=== PATIENT | male | born 1970 | race Caucasian/White ===

== ENCOUNTER 2019-02-20 11:21 | Inpatient (IN) ==
[2019-02-20] MEDS ORDERED: HYDROmorphone INJ 0.5 MG/0.5 ML SYR IV STA (11:33)
[2019-02-20] MEDS ORDERED: KETOROLAC 30 MG/ML VIAL IV STA (11:33)
[2019-02-20] MEDS ORDERED: TAMSULOSIN HCL 0.4 MG CAP PO ONE (11:33)
[2019-02-20] MEDS ORDERED: ONDANSETRON INJ 2 MG/ML 2 ML VIAL IV STA (11:33)
--- NOTE | 2019-02-20 11:38 | Emergency Department Note ---
History of Present Illness General Chief complaint: Kidney Stone Stated complaint: KIDNEY STONES Time Seen by Provider: 02/20/19 11:28 History of Present Illness Maximum Pain Intensity: 8 This 48-year-old male presents to ER with chief complaint of left flank pain that woke him up this morning at approximately 8 AM. The patient describes the pain as sharp in nature. He also admits to associated nausea and vomiting but denies any diarrhea. The patient admits to hesitancy with urination but denies any hematuria, frequency or dysuria. The patient has a history of kidney stones. He is followed by Dr. Castro. He has had lithotripsy in the past. Home Medications Home Medications Medication Instructions Recorded Confirmed Type albuterol sulfate 2 puff INHALATION UD PRN 02/20/19 02/20/19 History cholecalciferol (vitamin D3) 1,000 unit PO DAILY 02/20/19 02/20/19 History [Vitamin D3] fluticasone furoate-vilanterol 1 puff INHALATION BID 02/20/19 02/20/19 History [Breo Ellipta] lactobacillus combination no.4 3,000 mmu cells PO DAILY 02/20/19 02/20/19 History [Probiotic] pantoprazole 20 mg PO DAILY 02/20/19 02/20/19 History sertraline 50 mg PO DAILY 02/20/19 02/20/19 History Allergies Allergy/AdvReac Type Severity Reaction Status Date / Time barium sulfate Allergy Intermediate eye Unverified 02/20/19 12:09 swelling morphine AdvReac Intermediate "MAKES ME Verified 02/20/19 12:09 REALLY SICK" Past Med/Surg History Medical History Kidney stone (Acute) Social History Preferred Language: Albanian Communication Ability: Effective Visual Impairment: No Limitations Hearing Ability: Normal Feels Safe at Home: Yes Smoking Status: Former smoker Review of Systems A total of 10 systems reviewed and were otherwise negative Physical Exam Vital Signs Vital Signs - 24 hr 02/20/19 11:24 02/20/19 12:21 02/20/19 12:46 Temperature 36.3 C L Temperature Source Oral Sepsis Recent Fever Within 48 Hours No Sepsis Action Taken by Nursing No Action Required Pulse Rate 60 78 Pulse Rhythm Regular Respiratory Rate 17 20 Respiratory Effort / Characteristics Non-Labored Respiratory Depth Normal Respiratory Pattern Regular Blood Pressure 189/103 H Blood Pressure Mean 131 Blood Pressure Position Sitting Pulse Oximetry 99 88 L 94 Oxygen Delivery Method Room Air Room Air Nasal Cannula Oxygen Flow Rate 2 GENERAL: 48-year-old obese male appears uncomfortable secondary to pain. MENTAL Status: Alert and oriented x3. MOUTH: Mucosa is moist NECK: Supple, no lymphadenopathy noted. No carotid bruits noted. LUNGS: Clear auscultation without wheezes rales or rhonchi. CARDIAC: Regular rate and rhythm without murmur. Pulses is full and equal throughout. BACK: No CVA tenderness noted. ABDOMEN: Positive bowel sounds all 4 quadrants. Soft, nontender to palpation without organomegaly or masses. EXTREMITIES: No cyanosis or edema noted. Course Administered Medications Discontinued Medications Hydromorphone HCl (Dilaudid) 1 mg IV NOW STA Stop: 02/20/19 11:34 Last Admin: 02/20/19 12:09 Dose: 1 mg Documented by: [id number] Sodium Chloride (Nss 1000ml) 1,000 mls @ 999 mls/hr IV .Q1H1M MARCIA Stop: 02/20/19 12:45 Last Admin: 02/20/19 12:06 Dose: 999 mls/hr Documented by: [id number] Ketorolac Tromethamine (Toradol) 30 mg IV NOW STA Stop: 02/20/19 11:34 Last Admin: 02/20/19 12:07 Dose: 30 mg Documented by: [id number] Ondansetron HCl (Zofran) 4 mg IV NOW STA Stop: 02/20/19 11:34 Last Admin: 02/20/19 12:00 Dose: 4 mg Documented by: [id number] Tamsulosin HCl (Flomax) 0.4 mg PO NOW ONE Stop: 02/20/19 11:34 Last Admin: 02/20/19 12:07 Dose: 0.4 mg Documented by: [id number] Medical Decision Making Differential Diagnosis Ureteral calculi, pyelonephritis, UTI Medical Records Attestation: I reviewed the patient's medical records. Home Medications Current Medication List: was personally reviewed by me Laboratory Data Attestation: I reviewed the patient's lab results. Result diagrams: 02/20/19 12:04 02/20/19 12:04 Lab Results 0402/20/19 02/20/19 Range/Units 12:04 12:04 12:15 WBC 7.33 (4.8-10.8) K/uL RBC 4.96 (4.7-6.1) M/uL Hgb 15.3 (14.0-18.0) g/dL Hct 45.1 (42-52) % MCV 90.9 (80-100) fL MCH 30.8 (25-34) pg MCHC 33.9 (32-36) g/dL RDW Std Deviation 43.0 (36.4-46.3) fL RDW Coeff of Edilia 12.9 (11.5-14.5) % Plt Count 227 (130-400) K/uL MPV 10.1 (7.4-10.4) fL Immature Gran % (Auto) 0.3 % Neut % (Auto) 71.4 % Lymph % (Auto) 19.4 % [place] % (Auto) 7.8 % Eos % (Auto) 0.7 % Baso % (Auto) 0.4 % Immature Gran # (Auto) 0.02 (0.00-0.02) K/uL Neut # (Auto) 5.24 (1.4-6.5) K/uL Lymph # (Auto) 1.42 (1.2-3.4) K/uL [place] # (Auto) 0.57 (0.11-0.59) K/uL Eos # (Auto) 0.05 (0-0.5) K/uL Baso # (Auto) 0.03 (0-0.2) K/uL Sodium 137 (136-145) mmol/L Potassium 4.3 (3.5-5.1) mmol/L Chloride 105 (98-107) mmol/L Carbon Dioxide 28 (21-32) mmol/L Anion Gap 4.0 (3-11) BUN 14 (7-18) mg/dl Creatinine 1.08 (0.6-1.4) mg/dl Est Cr Clr Drug Dosing 114.1 ml/min Est GFR ( Amer) 94.2 Est GFR (Non-Af Amer) 81.3 BUN/Creatinine Ratio 13.0 (10-20) Glucose 106 H (70-99) mg/dl Calcium 9.6 (8.5-10.1) mg/dl Total Bilirubin 1.7 H (0.2-1) mg/dl AST 26 (15-37) U/L ALT 43 (12-78) U/L Alkaline Phosphatase 132 H (45-117) U/L Total Protein 7.3 (6.4-8.2) gm/dl Albumin 3.5 (3.4-5.0) gm/dl Globulin 3.8 (2.5-4.0) gm/dl Albumin/Globulin Ratio 0.9 (0.9-2) Lipase 110 (73-393) U/L Urine Color [place] Urine Appearance Clear (Clear) Urine pH 5.5 (4.5-7.5) Ur Specific [place] 1.026 (1.000-1.030) Urine Protein 1+ H (Negative) Urine Glucose (UA) Negative (Negative) Urine Ketones Trace H (Negative) Urine Blood 3+ H (Negative) Urine Nitrite Negative (Negative) Urine Bilirubin Negative (Negative) Urine Urobilinogen Negative (Negative) Ur Leukocyte Esterase Negative (Negative) Urine WBC (Auto) 1-5 (0-5) /hpf Urine RBC (Auto) >30 H (0-4) /hpf U Hyaline Cast (Auto) 1-5 (0-5) /lpf U Epithel Cells (Auto) 5-10 H (0-5) /lpf Urine Bacteria (Auto) Negative (Negative) Imaging Data Attestation: I personally reviewed and interpreted this imaging study as follows: My Impression: Left distal ureteral calculi noted Radiologist's Impression: CT SCAN OF THE ABDOMEN AND PELVIS WITHOUT IV CONTRAST CLINICAL HISTORY: Left flank pain. COMPARISON STUDY: Abdominal CT dated 09/11/2018. TECHNIQUE: CT scan of the abdomen and pelvis is performed from the lung bases to the proximal femora. Images are reviewed in the axial, sagittal, and coronal planes. IV contrast was not administered for this examination. A dose lowering technique was utilized adhering to the principles of ALARA. CT DOSE: 1460.89 mGycm FINDINGS: Lung bases: The heart is normal in size and without pericardial effusion. There are coronary artery calcifications. The lung bases are clear. There is a small to moderate hiatal hernia. Liver: The unenhanced liver is normal in size, contour, and attenuation. There is no intrahepatic biliary ductal dilatation. Gallbladder: Surgically absent noting clips in the gallbladder fossa. Spleen: Normal in size and attenuation. Pancreas: Unremarkable. Adrenal glands: Unremarkable. Kidneys: The unenhanced kidneys are normal in size. There is a 10 mm obstructing calculus at the left ureteropelvic junction at the level of L2, best seen on axial image #267. This causes mild to moderate left-sided hydronephrosis. No additional calculi are identified in either kidney. There is no right-sided hydronephrosis. There is no evidence of contour deforming renal mass lesion. Abdominal vasculature: The abdominal aorta is normal in course and caliber noting scattered foci of atherosclerotic calcification. Bowel: The small bowel and colon are normal in course and caliber. The appendix is well-visualized and normal. Peritoneum: There is no intraperitoneal free air or abdominal ascites. There is a small fat-containing umbilical hernia. Lymphadenopathy: None. Pelvic viscera: The bladder, prostate, and seminal vesicles are normal as imaged. Skeletal structures: No lytic or blastic lesions are seen. IMPRESSION: 1. There is a 10 mm obstructing calculus at the left ureteropelvic junction. This causes mild to moderate left hydronephrosis. 2. No additional calculi are identified in either kidney. 3. Additional findings as above. Electronically signed by: Sagar Bagley M.D. 02/20/2019 1:12 PM Dictated: 02/20/19 1304 Blood Pressure Blood Pressure Findings: Elevated blood pressure Blood Pressure Disposition: elevated BP felt to be situational MDM Narrative The patient was evaluated. IV access was obtained. The patient was given 1 L normal saline wide open. He was given Dilaudid 1 mg IV, Toradol 30 mg IV, Zofran 4 mg IV and Flomax 0.4 mg p.o. CBC and differential, renal profile, LFTs and lipase levels were ordered. Urinalysis was ordered. CT stone study was ordered and interpreted by the radiologist and myself as above with a 10 mm stone at the left UV junction.. Patient's labs are reviewed. White count was normal. Renal function was unremarkable. Urinalysis revealed positive blood but no evidence of bacterial or infection. The patient was reevaluated and was feeling much better. I consulted urology about the patient and they stated that he needs to be admitted by the hospitalist and they will see him in consult. [facility] Hospitalist was consulted for admission. The patient was informed of treatment plan and was in agreement. Impression & Plan Kidney stone Discharge Plan Visit Data Chief Complaint: Kidney Stone Stated Complaint: KIDNEY STONES ED Provider: Sagar Shetty ED Midlevel Provider: Nyla Zavaleta Discharge Problem: Kidney stone Patient Disposition: Being Evaluated by Hospitalist Condition: Good Forms Stand Alone Forms: My [facility] Prescriptions Prescriptions: No Action pantoprazole 20 mg tablet,delayed release (DR/EC) 20 mg PO DAILY RF: 0 albuterol sulfate 90 mcg/actuation HFA aerosol inhaler 2 puff inhalation UD PRN (Reason: Shortness Of Breath) RF: 0 sertraline 50 mg tablet 50 mg PO DAILY RF: 0 Breo Ellipta 100-25 mcg/dose blister with device 1 puff inhalation BID RF: 0 cholecalciferol (vitamin D3) [Vitamin D3] 1,000 unit Capsule 1,000 unit PO DAILY RF: 0 Probiotic 3 billion cell Capsule 3,000 mmu cells PO DAILY RF: 0 Referrals Referrals: Hans Trevino DO [Primary Care Provider] -
[2019-02-20] MEDS ORDERED: SODIUM CHLORIDE 0.9% 1000ML 1,000 ML IV SCH (11:45)
[2019-02-20 12:12] LABS: Basophils # (auto) 0.03 K/uL (0-0.2); Basophils % (auto) 0.4 %; Eosinophils # (auto) 0.05 K/uL (0-0.5); Eosinophils % (auto) 0.7 %; Hematocrit (blood only) 45.1 % (42-52); Hemoglobin 15.3 g/dL (14.0-18.0); Immature Granulocytes # (auto) 0.02 K/uL (0.00-0.02); Immature Granulocytes % (auto) 0.3 %; Lymphocytes # (auto) 1.42 K/uL (1.2-3.4); Lymphocytes % (auto) 19.4 %; Mean Corpuscular Hgb Conc 33.9 g/dL (32-36); Mean Corpuscular Volume 90.9 fL (80-100); Mean Platelet Volume 10.1 fL (7.4-10.4); Monocytes # (auto) 0.57 K/uL (0.11-0.59); Monocytes % (auto) 7.8 %; Neutrophils # (auto) 5.24 K/uL (1.4-6.5); Neutrophils % (auto) 71.4 %; Platelet Count 227 K/uL (130-400); RDW Coefficient of Variation 12.9 % (11.5-14.5); Red Blood Count 4.96 M/uL (4.7-6.1); White Blood Count 7.33 K/uL (4.8-10.8)
[2019-02-20 12:30] LABS: Albumin Level 3.5 gm/dl (3.4-5.0); Calcium 9.6 mg/dl (8.5-10.1); Creatinine Clr Calc Pharmacy 114.1 ml/min; Est GFR (African American) 94.2; Est GFR (Non-African American) 81.3; Potassium 4.3 mmol/L (3.5-5.1)
[2019-02-20 12:32] LABS: Albumin Globulin Ratio 0.9 (0.9-2); Bilirubin,Total 1.7 mg/dl (0.2-1); Globulin 3.8 gm/dl (2.5-4.0); Total Protein 7.3 gm/dl (6.4-8.2)
[2019-02-20 12:35] LABS: Appearance Urine Clear (Clear); Bacteria Urine Automated Negative (Negative); Bilirubin Urine Negative (Negative); Blood Urine 3+ (Negative); Color Urine Orange; Glucose Urine UA Negative (Negative); Ketones Urine Trace (Negative); Leukocyte Esterase Urine Negative (Negative); Nitrite Urine Negative (Negative); Protein Urine 1+ (Negative); RBC Urine Automated >30 /hpf (0-4); Specific Gravity Urine 1.026 (1.000-1.030); Urobilinogen Urine Negative (Negative); pH Urine 5.5 (4.5-7.5)
--- NOTE | 2019-02-20 13:13 | CT Scan Report ---
CT SCAN OF THE ABDOMEN AND PELVIS WITHOUT IV CONTRAST CLINICAL HISTORY: Left flank pain. COMPARISON STUDY: Abdominal CT dated 09/11/2018. TECHNIQUE: CT scan of the abdomen and pelvis is performed from the lung bases to the proximal femora. Images are reviewed in the axial, sagittal, and coronal planes. IV contrast was not administered for this examination. A dose lowering technique was utilized adhering to the principles of ALARA. CT DOSE: 1460.89 mGycm FINDINGS: Lung bases: The heart is normal in size and without pericardial effusion. There are coronary artery c alcifications. The lung bases are clear. There is a small to moderate hiatal hernia. Liver: The unenhanced liver is normal in size, contour, and attenuation. There is no intrahepatic hilary iary ductal dilatation. Gallbladder: Surgically absent noting clips in the gallbladder fossa. Spleen: Normal in size and attenuation. Pancreas: Unremarkable. Adrenal glands: Unremarkable. Kidneys: The unenhanced kidneys are normal in size. There is a 10 mm obstructing calculus at the left ureteropelvic junction at the level of L2, best seen on axial image #267. This causes mild to modera te left-sided hydronephrosis. No additional calculi are identified in either kidney. There is no righ t-sided hydronephrosis. There is no evidence of contour deforming renal mass lesion. Abdominal vasculature: The abdominal aorta is normal in course and caliber noting scattered foci of a therosclerotic calcification. Bowel: The small bowel and colon are normal in course and caliber. The appendix is well-visualized a nd normal. Peritoneum: There is no intraperitoneal free air or abdominal ascites. There is a small fat-containin g umbilical hernia. Lymphadenopathy: None. Pelvic viscera: The bladder, prostate, and seminal vesicles are normal as imaged. Skeletal structures: No lytic or blastic lesions are seen. IMPRESSION: 1. There is a 10 mm obstructing calculus at the left ureteropelvic junction. This causes mild to mode rate left hydronephrosis. 2. No additional calculi are identified in either kidney. 3. Additional findings as above. Electronically signed by: Sagar Bagley M.D. 02/20/2019 1:12 PM
--- OUTSIDE RECORDS SUMMARY | 2019-02-20 13:42 | External Medical Summary | Continuity of Care Document ---
:1970 Author Name Evangelina M.DAlex Address Unavailable Unavailable , Care Team Providers Name Role Phone Unavailable Unavailable Unavailable MAXIN, W Unavailable Unavailable Unavailable Unavailable Unavailable Problems Nephrolithiasis (592.0) (N20.0) Nephrolithiasis (592.0) (N20.0) Allergies and Adverse Reactions Iodinated Contrast Media (Allergy) Morphine Sulfate SOLN (Allergy) Medications Simvastatin TABS , M.D. Refills: 0 Protonix 20 MG Oral Tablet Delayed Release , M.D. Refills: 0 Procedures History of Cystoscopy With Insertion Of Ureteral Stent Status: Completed Immunizations Immunizations not documented Family History Unknown Family Member Family history of Prostate Cancer (V16.42) Status: Active Comments: Family History Family history of Diabetes Mellitus (V18.0) Status: Active Comments: Family History Family history of Heart Disease (V17.49) Status: Active Comments: Family History Family history of Hypertension (V17.49) Status: Active Comments: Family History Family history of Cancer Status: Active Comments: Famil y History Family history of Nephrolithiasis Status: Active Commen ts: Family History Social History - Smoking Status Never smoker Plan of Treatment Planned Observations Planned Goals not documented Results No Known Results Results not documented
--- NOTE | 2019-02-20 14:52 | History & Physical Report ---
Date of Service February 20, 2019 Assessment & Plan (1) Kidney stone: 10 mm obstructing left UPJ stone with mild to moderate left hydronephrosis on CT - NPO until evaluated by urology for additional intervention - IV pain control with Dilaudid and Toradol - IVF with NSS at 125 ml/hr - IV Zofran ordered for nausea - Labs in AM - SCDs for DVT prophylaxis - encourage ambulation (2) Dyslipidemia: - Continue simvastatin (3) Anxiety: - Continue sertraline - pt reports symptoms are well-controlled (4) Reflux esophagitis: - Will change to Pepcid (from pantoprazole) while patient admitted (5) Asthma: - Continue Breo (pt can bring from home if needed) and prn albuterol Pt seen and discussed with collaborating physician, Dr. Beltre. Plan of care as outlined above. Further plan of care to be determined pending urology input. Aggie Zhong PA-C History of Present Illness Chief Complaint: Flank pain Primary Care Provider: Hans Trevino DO This is a 48 y/o male with a PMH of nephrolithiasis, asthma, dyslipidemia, reflux esophagitis and anxiety who presented to the ED today after the abrupt onset of left back/flank pain that awoke him from sleep around 7:30 am. 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 However, this morning he developed sharp pain in left mid-back that gradually moved to left flank area. He had associated nausea with one "prolonged" episode of non-bloody emesis. Due to the severity of symptoms as well as his prior history of stones, he came to the ED for evaluation where he was found to have a 10 mm obstructing stone at the left UPJ. The patient follows with [facility] urology at present. He was last in the ED for stones in Aug 2018. He did undergo stent placement and subsequent lithotripsy for a right-sided stone in 2013 but does not recall any other procedures since that time. He received Dilaudid for pain the ED with improvement - rates current pain as a 2. He did note chills and sweats with the pain this morning but no documented fevers. He has a strong family history of nephrolithiasis as both his parents and his two sisters all have had issues with this. He admits to drinking large amounts of sweet tea and Coke but also attempts to keep up his water intake as he has been instructed by urology. When the pain started this morning, he did attempt to drink 2-3 glasses of water but vomited this back up immediately. Allergies Allergy/AdvReac Type Severity Reaction Status Date / Time barium sulfate Allergy Intermediate eye Unverified 02/20/19 12:09 swelling morphine AdvReac Intermediate "MAKES ME Verified 02/20/19 12:09 REALLY SICK" Home Medications Home Medications Medication Instructions Recorded Confirmed Type albuterol sulfate 2 puff INHALATION UD PRN 02/20/19 02/20/19 History cholecalciferol (vitamin D3) 1,000 unit PO DAILY 02/20/19 02/20/19 History [Vitamin D3] fluticasone furoate-vilanterol 1 puff INHALATION BID 02/20/19 02/20/19 History [Breo Ellipta] lactobacillus combination no.4 3,000 mmu cells PO DAILY 02/20/19 02/20/19 History [Probiotic] pantoprazole 20 mg PO DAILY 02/20/19 02/20/19 History sertraline 50 mg PO DAILY 02/20/19 02/20/19 History simvastatin 40 mg PO DAILY 02/20/19 02/20/19 History Past Med/Surg History Social History Preferred Language: Amharic Communication Ability: Effective Visual Impairment: No Limitations Hearing Ability: Normal [employer] Required: No Beliefs That Will Affect Care: None Current Living Situation: Spouse current occupational status: employed 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 [employer] Other Information That Helps Us Care for You: No Feels Safe at Home: Yes Safety Concerns: Feels Safe At This Time Smoking Status: Former smoker Do You Dip or Chew Tobacco: No Second Hand Exposure: No Tobacco Cessation Education Requested by Patient: No Hx Alcohol Use: Yes Hx Substance Use: No caffeine: Yes (large amounts of sweet tea, Coke) Review of Systems Review of Systems: All systems reviewed & are unremarkable except as noted in HPI & below Constitutional: + chills, + sweats, + fatigue and + anorexia; no fever Eyes: no diplopia, not seeing flashes and no worsening vision Ear, Nose, Mouth, Throat: + nasal congestion and + nasal discharge; no ear pain, no dizziness and no sore throat Respiratory: + cough (due to asthma - chronic issue) and + wheezing (at baseline - underlying asthma); no change in sputum, no dyspnea on exertion and no hemoptysis Cardiovascular: no chest pain, no dyspnea on exertion, no palpitations, no syncope and no edema Gastrointestinal: + nausea and + vomiting; no heartburn, no dysphagia, no change in bowel habits, no diarrhea/loose stools and no blood in stools Genitourinary: + decreased urination and + flank pain; no dysuria, no nocturia and no hematuria Musculoskeletal: no neck pain, no joint pain and no muscle weakness Integumentary: no rash and no skin ulcer Neurologic: no falls, no seizure-like activity, no dizziness, no syncope and no headache(s) Psychiatric: + anxiety (chronic issue - stable at present) Physical Exam Constitutional: WD/WN, vitals as above + obese; no acute distress Eyes: PERRL, conjunctivae normal, anicteric sclerae EOM intact bilaterally ENMT: external ear and nose normal, oropharynx normal Neck: trachea midline Respiratory: normal respiratory effort, lungs clear to auscultation Auscultation: no rales, no rhonchi and no wheezes Cardiovascular: Rate/Rhythm: regular rate and regular rhythm Heart Sounds: no gallop, no murmur and no cardiac rub Vessels: dorsalis pedis pulses present Extremities: normal capillary refill; no pedal edema Gastrointestinal (Abdomen): Inspection/Auscultation: normal bowel sounds; abdomen not distended Percussion/Palpation: abdomen soft; abdomen nontender Musculoskeletal: Head/Neck/Chest: normocephalic, head atraumatic and neck supple Extremities: no cyanosis and no clubbing Skin: no rashes, warm and dry no jaundice Neurologic: moves all extremities; no focal motor deficits Speech / Cognition: normal speech Psychiatric: A+Ox3, euthymic affect Results & Data Vital Signs (Past 12 Hours) Vital Signs Temp Pulse Pulse Resp BP BP Pulse Ox 02/20/19 14:03 74 20 122/79 94 02/20/19 12:46 78 20 94 02/20/19 12:21 88 L 02/20/19 11:24 36.3 C L 60 17 189/103 H 99 Laboratory Results Laboratory Results - last 24 hr 02/20/19 02/20/19 02/20/19 12:04 12:04 12:15 WBC 7.33 RBC 4.96 Hgb 15.3 Hct 45.1 MCV 90.9 MCH 30.8 MCHC 33.9 RDW Std Deviation 43.0 RDW Coeff of Edilia 12.9 Plt Count 227 MPV 10.1 Immature Gran % (Auto) 0.3 Neut % (Auto) 71.4 Lymph % (Auto) 19.4 [place] % (Auto) 7.8 Eos % (Auto) 0.7 Baso % (Auto) 0.4 Immature Gran # (Auto) 0.02 Neut # (Auto) 5.24 Lymph # (Auto) 1.42 [place] # (Auto) 0.57 Eos # (Auto) 0.05 Baso # (Auto) 0.03 Sodium 137 Potassium 4.3 Chloride 105 Carbon Dioxide 28 Anion Gap 4.0 BUN 14 Creatinine 1.08 Est Cr Clr Drug Dosing 114.1 Est GFR ( Amer) 94.2 Est GFR (Non-Af Amer) 81.3 BUN/Creatinine Ratio 13.0 Glucose 106 H Calcium 9.6 Total Bilirubin 1.7 H AST 26 ALT 43 Alkaline Phosphatase 132 H Total Protein 7.3 Albumin 3.5 Globulin 3.8 Albumin/Globulin Ratio 0.9 Lipase 110 Urine Color [place] Urine Appearance Clear Urine pH 5.5 Ur Specific [place] 1.026 Urine Protein 1+ H Urine Glucose (UA) Negative Urine Ketones Trace H Urine Blood 3+ H Urine Nitrite Negative Urine Bilirubin Negative Urine Urobilinogen Negative Ur Leukocyte Esterase Negative Urine WBC (Auto) 1-5 Urine RBC (Auto) >30 H U Hyaline Cast (Auto) 1-5 U Epithel Cells (Auto) 5-10 H Urine Bacteria (Auto) Negative Diagnostic Findings CT Abd/Pel 02/20/19 - IMPRESSION: 1. There is a 10 mm obstructing calculus at the left ureteropelvic junction. This causes mild to moderate left hydronephrosis. 2. No additional calculi are identified in either kidney. 3. Additional findings as above. Medications Administered Discontinued Medications Hydromorphone HCl (Dilaudid) 1 mg IV NOW STA Stop: 02/20/19 11:34 Last Admin: 02/20/19 12:09 Dose: 1 mg Documented by: [id number] Sodium Chloride (Nss 1000ml) 1,000 mls @ 999 mls/hr IV .Q1H1M MARCIA Stop: 02/20/19 12:45 Last Infusion: 02/20/19 14:04 Dose: 0 mls/hr Documented by: [id number] Admin: 02/20/19 12:06 Dose: 999 mls/hr Documented by: [id number] Ketorolac Tromethamine (Toradol) 30 mg IV NOW STA Stop: 02/20/19 11:34 Last Admin: 02/20/19 12:07 Dose: 30 mg Documented by: [id number] Ondansetron HCl (Zofran) 4 mg IV NOW STA Stop: 02/20/19 11:34 Last Admin: 02/20/19 12:00 Dose: 4 mg Documented by: [id number] Tamsulosin HCl (Flomax) 0.4 mg PO NOW ONE Stop: 02/20/19 11:34 Last Admin: 02/20/19 12:07 Dose: 0.4 mg Documented by: [id number] Code Status & VTE Plan Code Status spoke with patient about code status - he states that he would want all measures performed in the event of an arrest Supervising Physician Co-Signing Physician Notes I have seen and examined the patient and have discussed the case with the provider above. I agree with the assessment and plan as stated with the following exceptions. Mr. Freeman is a 48 yo M with a h/o nephrolithiasis presenting with severe pain 2/2 a 10mm UPJ stone. Urology is aware. He reports his pain as resolved after the dilaudid given in the ER, and is requesting sancho d. BP has improved with pain control. Physical exam reveals normal vitals, and a WNWD man in NAD, heart and lung exam is normal and abdomen is soft, nontender and nondistended wo CVA tenderness. He is afebrile. He is otherwise healthy. Cont plan as above including pain and nausea control, Flomax and IVF. NPO p MN in case of procedure in am. Will order diet now. DO Alexsander
[2019-02-20] MEDS ORDERED: TRAMADOL HCL 50 MG TABLET PO PRN (15:52)
[2019-02-20] MEDS ORDERED: HYDROmorphone INJ 0.5 MG/0.5 ML SYR IV PRN (15:52)
[2019-02-20] MEDS ORDERED: ONDANSETRON INJ 2 MG/ML 2 ML VIAL IV PRN (15:52)
[2019-02-20] MEDS ORDERED: ALBUTEROL HFA 8 GM INHALER INH PRN (15:52)
[2019-02-20] MEDS ORDERED: KETOROLAC TROMETHAMINE 15 MG/ML VIAL IV PRN (15:52)
[2019-02-20] MEDS: SODIUM CHLORIDE 0.9% 1000ML 1,000 ML IV SCH (16:16)
[2019-02-20] MEDS ORDERED: NON-FORMULARY PATIENT'S OWN MED SCH (21:00)
[2019-02-21] MEDS: SODIUM CHLORIDE 0.9% 1000ML 1,000 ML IV SCH ×3 (00:15→18:36)
[2019-02-21 06:54] LABS: Basophils # (auto) 0.03 K/uL (0-0.2); Basophils % (auto) 0.4 %; Eosinophils # (auto) 0.11 K/uL (0-0.5); Eosinophils % (auto) 1.6 %; Hematocrit (blood only) 41.4 % (42-52); Hemoglobin 13.7 g/dL (14.0-18.0); Immature Granulocytes # (auto) 0.01 K/uL (0.00-0.02); Immature Granulocytes % (auto) 0.1 %; Lymphocytes % (auto) 31.3 %; Mean Corpuscular Hgb Conc 33.1 g/dL (32-36); Mean Corpuscular Volume 91.8 fL (80-100); Monocytes # (auto) 0.72 K/uL (0.11-0.59); Monocytes % (auto) 10.3 %; Neutrophils # (auto) 3.95 K/uL (1.4-6.5); Neutrophils % (auto) 56.3 %; Platelet Count 205 K/uL (130-400); RDW Coefficient of Variation 13.1 % (11.5-14.5); RDW Standard Deviation 43.9 fL (36.4-46.3); Red Blood Count 4.51 M/uL (4.7-6.1); White Blood Count 7.02 K/uL (4.8-10.8)
[2019-02-21 07:29] LABS: BUN Creatinine Ratio 12.7 (10-20); Calcium 8.5 mg/dl (8.5-10.1); Creatinine Clr Calc Pharmacy 129.7 ml/min; Est GFR (Non-African American) 94.9; Potassium 4.1 mmol/L (3.5-5.1)
[2019-02-21] MEDS ORDERED: SERTRALINE HCL 50 MG TABLET PO SCH (09:00)
[2019-02-21] MEDS ORDERED: TAMSULOSIN HCL 0.4 MG CAP PO SCH (09:00)
[2019-02-21] MEDS ORDERED: FAMOTIDINE 20 MG TAB PO SCH (09:00)
[2019-02-21] MEDS ORDERED: SIMVASTATIN 40 MG TAB PO SCH (09:00)
--- NOTE | 2019-02-21 11:05 | Urology Consultation ---
Date of Consultation February 21, 2019 Assessment & Plan (1) Kidney stone: 10mm left upper ureteral stone plan to OR for cysto left ureteroscopy laser litho basket stone extraction stent also offered stent today and eswl in future. 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 he has had pain since yesterday am. He was brought in thru ER. He had nausea and emesis yesterday. Pain control today has been good. he has had stones in past treated with shock wave lithotripsy. His ct shows a 10mm left upper ureteral stone wiht hydro. Requesting Physician: Dr Short Attending Physician: Bishop Bradley DO History of Present Illness I am asked by Dr Short to evaluate and treat patient for left ureteral stone. he has had pain since yesterday am. He was brought in thru ER. He had nausea and emesis yesterday. Pain control today has been good. he has had stones in past treated with shock wave lithotripsy. His ct shows a 10mm left upper ureteral stone wiht hydro. Allergies Allergy/AdvReac Type Severity Reaction Status Date / Time barium sulfate Allergy Intermediate eye Unverified 02/20/19 12:09 swelling morphine AdvReac Intermediate "MAKES ME Verified 02/20/19 12:09 REALLY SICK" Home Medications Home Medications Medication Instructions Recorded Confirmed Type albuterol sulfate 2 puff INHALATION UD PRN 02/20/19 02/20/19 History cholecalciferol (vitamin D3) 1,000 unit PO DAILY 02/20/19 02/20/19 History [Vitamin D3] fluticasone furoate-vilanterol 1 puff INHALATION BID 02/20/19 02/20/19 History [Breo Ellipta] lactobacillus combination no.4 3,000 mmu cells PO DAILY 02/20/19 02/20/19 History [Probiotic] pantoprazole 20 mg PO DAILY 02/20/19 02/20/19 History sertraline 50 mg PO DAILY 02/20/19 02/20/19 History simvastatin 40 mg PO DAILY 02/20/19 02/20/19 History Patient History Social History Preferred Language: Pakistani Communication Ability: Effective Visual Impairment: No Limitations Hearing Ability: Normal 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 Beliefs That Will Affect Care: None Current Living Situation: Spouse current occupational status: employed 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 [employer] Other Information That Helps Us Care for You: No Feels Safe at Home: Yes Safety Concerns: Feels Safe At This Time Smoking Status: Former smoker Do You Dip or Chew Tobacco: No Second Hand Exposure: No Tobacco Cessation Education Requested by Patient: No Hx Alcohol Use: Yes Hx Substance Use: No caffeine: Yes (large amounts of sweet tea, Coke) Review of Systems Review of Systems: PMH- asthma Soc- no tobacco social alcohol, employed Fam Hx- both parents and siblings have kidney stones, dad had mi in his late 40's ROS- + nausea + emesis- no rash, no chest pain, no SOB, bowels fine, no weakness or seizures or numbness, no fevers or chills Physical Exam Constitutional: WD/WN, vitals as above Respiratory: normal respiratory effort, lungs clear to auscultation Cardiovascular: RRR, no murmur, no edema Gastrointestinal (Abdomen): normal bowel sounds, soft, nontender, no hepatosplenomegaly Skin: no rashes, warm and dry Psychiatric: A+Ox3, euthymic affect Apperance: appropriately groomed Results & Data Vital Signs (Past 12 Hours) Vital Signs Temp Pulse Pulse Resp BP Pulse Ox 02/21/19 08:29 36.6 C 78 18 130/80 95 02/20/19 23:05 36.6 C 76 16 129/84 94
--- NOTE | 2019-02-21 11:20 | Anesthesiology Consultation ---
Date of Service February 21, 2019 Assessment & Plan (1) Encounter for pre-operative examination: Chart Review Chart Review: Acceptable Risk for Surgery and Patient NOT seen in Pre Admission Testing Consults Requested none History Surgery Operation Date: 02/21/19 07:00 Proposed Procedures p Left Ureteroscopy, Cystoscopy, Basket Stone Extraction, Stent Placement - Alysia Rock MD Height/Weight Height: 5 ft 10 in Weight: 129 kg Allergies Allergy/AdvReac Type Severity Reaction Status Date / Time barium sulfate Allergy Intermediate eye Unverified 02/20/19 12:09 swelling morphine AdvReac Intermediate "MAKES ME Verified 02/20/19 12:09 REALLY SICK" Medications Home Medications Medication Instructions Recorded Confirmed Last Taken albuterol sulfate 2 puff INHALATION UD PRN 02/20/19 02/20/19 Unknown cholecalciferol (vitamin D3) 1,000 unit PO DAILY 02/20/19 02/20/19 Unknown [Vitamin D3] fluticasone furoate-vilanterol 1 puff INHALATION BID 02/20/19 02/20/19 Unknown [Breo Ellipta] lactobacillus combination no.4 3,000 mmu cells PO DAILY 02/20/19 02/20/19 Unknown [Probiotic] pantoprazole 20 mg PO DAILY 02/20/19 02/20/19 Unknown sertraline 50 mg PO DAILY 02/20/19 02/20/19 Unknown simvastatin 40 mg PO DAILY 02/20/19 02/20/19 Unknown Active Medications Generic Name Dose Route Start Last Admin Trade Name Freq PRN Reason Stop Dose Admin Famotidine 20 mg 02/21/19 09:00 02/21/19 09:04 Pepcid PO 03/23/19 08:59 20 mg QAM MARCIA Administration Sodium Chloride 1,000 mls @ 125 mls/hr 02/20/19 15:52 02/21/19 07:45 Nss 1000ml IV 03/22/19 15:51 125 mls/hr .Q8H MARCIA Administration Miscellaneous 1 ea 02/20/19 16:15 02/21/19 07:45 Order Awaiting Action N/A 03/22/19 16:14 Not Given QS MARCIA Sertraline HCl 50 mg 02/21/19 09:00 02/21/19 09:05 Zoloft PO 03/23/19 08:59 50 mg DAILY MARCIA Administration Simvastatin 40 mg 02/21/19 09:00 02/21/19 09:04 Zocor PO 03/23/19 08:59 40 mg DAILY MARCIA Administration Tamsulosin HCl 0.4 mg 02/21/19 09:00 02/21/19 09:03 Flomax PO 03/23/19 08:59 0.4 mg QAM MARCIA Administration NPO Date Last Intake of Fluids: 02/21/19 Time Last Intake of Fluids: 00:00 Last Intake of Fluids Comment: allowed sips/chips. Date Last Intake of Solids: 02/20/19 Time Last Intake of Solids: 23:00 Last Intake of Solids Comment: prior to shift. Past Medical History Medical History Kidney stone (Acute) Anxiety (Chronic) Asthma (Chronic) Dyslipidemia (Chronic) Environmental allergies (Chronic) History of wisdom tooth extraction (Chronic) Reflux esophagitis (Chronic) Alcohol dependence in remission (Resolved) Morbid obesity Past Family History Family History Mother Nephrolithiasis Father Nephrolithiasis Sister Nephrolithiasis Sister Nephrolithiasis Past Surgical History Surgical History History of laparoscopic cholecystectomy (Chronic) History of tonsillectomy and adenoidectomy (Chronic) History of tympanostomy (Resolved) History of lithotripsy Social History Smoking Status: Former smoker Do You Dip or Chew Tobacco: No Hx Alcohol Use: Yes Hx Substance Use: No Physical Exam Vital Signs Last Vital Signs Temp 36.6 C 02/21/19 08:29 Pulse 78 02/21/19 08:29 Resp 18 02/21/19 08:29 BP 130/80 02/21/19 08:29 Pulse Ox 95 02/21/19 08:29 Testing Laboratory Results 02/21/19 06:28 02/21/19 06:28 Urine Color [place] 02/20/19 12:15 Urine Appearance Clear (Clear) 02/20/19 12:15 Urine pH 5.5 (4.5-7.5) 02/20/19 12:15 Ur Specific [place] 1.026 (1.000-1.030) 02/20/19 12:15 Urine Protein 1+ (Negative) H 02/20/19 12:15 Urine Glucose (UA) Negative (Negative) 02/20/19 12:15 Urine Ketones Trace (Negative) H 02/20/19 12:15 Urine Nitrite Negative (Negative) 02/20/19 12:15 Ur Leukocyte Esterase Negative (Negative) 02/20/19 12:15 Urine WBC (Auto) 1-5 /hpf (0-5) 02/20/19 12:15 Urine RBC (Auto) >30 /hpf (0-4) H 02/20/19 12:15 U Hyaline Cast (Auto) 1-5 /lpf (0-5) 02/20/19 12:15 U Epithel Cells (Auto) 5-10 /lpf (0-5) H 02/20/19 12:15 Urine Bacteria (Auto) Negative (Negative) 02/20/19 12:15
--- NOTE | 2019-02-21 11:58 | Hospitalist Progress Note ---
Date of Service February 21, 2019 Assessment & Plan (1) Kidney stone: 10 mm obstructing left UPJ stone with mild to moderate left hydronephrosis on CT - Urology on case-plan to OR for cysto left ureteroscopy laser litho basket stone extraction stent - IV pain control with Dilaudid and Toradol - IVF with NSS at 125 ml/hr - IV Zofran ordered for nausea - Monitor Daily Labs - SCDs for DVT prophylaxis - encourage ambulation (2) Dyslipidemia: - Continue simvastatin (3) Anxiety: - Continue sertraline - pt reports symptoms are well-controlled (4) Reflux esophagitis: - Will change to Pepcid (from pantoprazole) while patient admitted (5) Asthma: - Continue Breo (pt can bring from home if needed) and prn albuterol Subjective 48 y/o male with a PMH of nephrolithiasis, asthma, dyslipidemia, reflux esophagitis and anxiety who presented to the ED today after the abrupt onset of left back/flank pain that awoke him from sleep around 7:30 am. 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 However, this morning he developed sharp pain in left mid-back that gradually moved to left flank area. He had associated nausea with one "prolonged" episode of non-bloody emesis. Due to the severity of symptoms as well as his prior history of stones, he came to the ED for evaluation where he was found to have a 10 mm obstructing stone at the left UPJ. The patient follows with [facility] urology at present. He was last in the ED for stones in Aug 2018. He did undergo stent placement and subsequent lithotripsy for a right-sided stone in 2013 but does not recall any other procedures since that time. He received Dilaudid for pain the ED with improvement - rates current pain as a 2. He did note chills and sweats with the pain this morning but no documented fevers. He has a strong family history of nephrolithiasis as both his parents and his two sisters all have had issues with this. He admits to drinking large amounts of sweet tea and Coke but also attempts to keep up his water intake as he has been instructed by urology. When the pain started this morning, he did attempt to drink 2-3 glasses of water but vomited this back up immediately. He was seen by -plan to OR for cysto left ureteroscopy laser litho basket stone extraction stent ROS-No Headache, No Visual Changes, No Nausea, No Vomiting, No Fever, No Chills, No Neck Pain or Stiffness, No Chest Pain, No Palpitations, No SOB, No SUMNER, No Cough, No Sputum, No Wheezing, No Abdominal Pain, No Diarrhea, No Hematemesis, No Hemoptysis, No Unexpected Weight Loss, No Flank pain, No Melena, No Hematochezia, No Frequency, No Urgency, No Burning, No Hematuria, No Rashes, No Diaphoresis. Appetite is Normal. Left flank and back Pain Physical Exam Gen-AAO x 3, NAD, Afebrile Head-NCAT, EOMI, PERRLA, Anicteric Sclera, No Posterior Pharyngeal Erythema Neck-Supple, No JVD, No Thyromegaly, No Masses, No LAD, No Bruits Lungs-Clear to Auscultation Bilaterally, No Rales, No Rhonchi, No Wheezing, No Crepitus Chest-No S4, +S1, +S2, No S3, No Murmurs, No Rubs, No Gallops, No Ectopy Abdomen-Soft, Bowel Sounds Present, Non Tender, Non Distended, No Hepatomegaly, No Splenomegaly, No Palpable Masses, No Rebound, No Rigidity, No Guarding Musculoskeletal-Full Range of Motion Bilaterally, +Left CVAT Extremities-No Cyanosis, No Clubbing, No Edema Nuero-Cranial Nerves II-XII grossly intact, Motor WNL, DTRs WNL, Strength WNL, Non Focal Psych-Normal Mood Results & Data Vital Signs (Past 12 Hours) Vital Signs Temp Pulse Resp BP Pulse Ox 02/21/19 08:29 36.6 C 78 18 130/80 95 Current Diagnoses Hyperlipidemia, unspecified (02/20/19) Anxiety disorder, unspecified (02/20/19) Unspecified asthma, uncomplicated (02/20/19) Gastro-esophageal reflux disease with esophagitis (02/20/19) Calculus of kidney (02/20/19) Encounter for other preprocedural examination (02/20/19) Allergies barium sulfate Allergy (Intermediate, Unverified 02/20/19 12:09) eye swelling morphine Adverse Reaction (Intermediate, Verified 02/20/19 12:09) "MAKES ME REALLY SICK" Height/Weight/Isolation Height 5 ft 10 in Weight 129 kg Chemistry 02/20/19 02/21/19 12:04 06:28 Sodium 137 140 Potassium 4.3 4.1 Chloride 105 109 H Carbon Dioxide 28 29 Anion Gap 4.0 2.0 L BUN 14 12 Creatinine 1.08 0.95 Glucose 106 H 96 Urinalysis 02/20/19 12:15 Urine Color [place] Urine Appearance Clear Urine pH 5.5 Ur Specific [place] 1.026 Urine Protein 1+ H Urine Glucose (UA) Negative Urine Ketones Trace H Urine Blood 3+ H Urine Nitrite Negative Urine Bilirubin Negative
[2019-02-21] MEDS ORDERED: ONDANSETRON INJ 2 MG/ML 2 ML VIAL IV PRN (12:56)
[2019-02-21] MEDS ORDERED: ATROPINE SULFATE 0.1 MG/ML 10ML SYR IV PRN (12:56)
[2019-02-21] MEDS ORDERED: fentaNYL citrate 100 MCG/2 ML VIAL IV PRN (12:56)
[2019-02-21] MEDS ORDERED: ePHEDrine sulfate 50 MG/ML AMP IV PRN (12:56)
[2019-02-21] MEDS ORDERED: MIDAZOLAM HCL 1 MG/ML 2ML VIAL ONE (13:25)
[2019-02-21] MEDS ORDERED: fentaNYL citrate 100 MCG/2 ML VIAL ONE (13:25)
[2019-02-21] MEDS ORDERED: CEFAZOLIN 2,000 MG/15 ML IV PUSH IV ONE (13:40)
[2019-02-21] MEDS ORDERED: CEFAZOLIN 2000MG 2,000 MG/15 ML SYR IV SCH (13:45)
[2019-02-21] MEDS ORDERED: PROPOFOL IV EMULSION 10 MG/ML 20 ML VIAL IV ONE (14:28)
[2019-02-21] MEDS ORDERED: KETOROLAC 30 MG/ML VIAL ONE (14:28)
[2019-02-21] MEDS ORDERED: DEXAMETHASONE SOD INJ 4 MG/ML VIAL ONE (14:28)
[2019-02-21] MEDS ORDERED: ONDANSETRON INJ 2 MG/ML 2 ML VIAL ONE (14:28)
[2019-02-21] MEDS ORDERED: LIDOCAINE HCL 2% 2 ML VIAL/AMP(20MG/ML) INFIL ONE (14:28)
[2019-02-21] MEDS ORDERED: BELLADONNA/OPIUM SUPP 60 MG SUPP PR ONE (14:28)
--- NOTE | 2019-02-21 14:41 | Operative Report ---
Post Operative Report Pre & Post Diagnosis Operation Date: 02/21/19 07:00 Pre-Op Diagnosis: OBSTRUCTING NEPHROLITHIASIS left ureter Post-Op Diagnosis: OBSTRUCTING NEPHROLITHIASIS left ureter Procedure Operation Date: 02/21/19 07:00 Actual Procedures p Left Ureteroscopy, Cystoscopy, Laser Lithotripsy, Basket Stone Extraction, Left Ureteral Stent Placement(Left) - Alysia Rock MD Surgeon Alysia Rock MD Transmission Maintenance Supervisor none Estimated Blood Loss 1 Findings Consistent with Post-Op Diagnosis radio-opaque left upper ureteral stone Fluids 600 Specimens left ureteral stone fragments Drains 6 fr 24 centimeter double Jstent Anesthesia Type General Complications none Disposition Accompanied Patient To Recovery: Yes Disposition: Recovery Room Indications 10mm left upper ureteral stone with obstruction Description of Procedure Patient was given general LMA anesthesia and placed in lithotomy position. His genitals were prepped and draped in sterile fashion. Time out held with team. I placed a 21 fr rigid cystoscope to bladder. The urethra is unremarkable. The prostate is medium. The UOs are round shape with small lumen. I placed a road runner wire up left ureter and was able under fluoro to see wire go past stone to kidney. I placed a 5 fr over this wire and switched to a stiff wire. I placed a dual lumen cath which was very tight at UVJ. I placed second aire. I placed ureteroscope over second wire to upper ureter. It was also tight at the UVJ. I advanced the scope to the kidney under vision. he has a area of narrowing in the upper ureter about 20mm fro UPJ. Scope passage was tight. The stone has been pushed back into the kidney. I used a 270 micron holmium laser to fragment the stone into about 10 pieces. I used a 1.9 zero tip basket and removed 4 fragments. The ureter is too tight to allow for further scope pas sages to remove the remaining pieces but they should be small enough to pass. I placed a 24 centimeter 6 Fr double J stent easily. There is brisk efflux after placement. I left bladder empty and concluded case. I placed a belladonna and opium suppository for post-op pain. He transferred to recovery under my escort, in stable condition. Plan: Home today Pyridium for dysuria x 3 days flomax daily oral pain meds as needed stent removal in office next week ASA 3 clean contaminated case 29 seconds fluoro ancef antibiotic cone machine feeder I attest to the content of the Intraoperative Record and any orders documented therein. Any exceptions are noted below.
--- NOTE | 2019-02-21 14:52 | Fluoroscopy Report ---
FL retrograde includes kub CLINICAL HISTORY: LEFT SIDEnephrocalcinosis COMPARISON STUDY: None FLUOROSCOPY TIME: 29 seconds NUMBER OF FLUOROSCOPIC IMAGES: 4 FINDINGS: Image intensifier support for laser lithotripsy and stent placement IMPRESSION: Image intensifier support for laser lithotripsy and stent placement The above report was generated using voice recognition software. It may contain grammatical, syntax or spelling errors. Electronically signed by: José Miguel Zavaleta M.D. 02/21/2019 2:50 PM
--- NOTE | 2019-02-21 15:25 | Anesthesiology Progress Note ---
Date of Service February 21, 2019 Anesthesia Post Procedure Vital Signs Vital Signs: Temp Pulse Pulse Resp BP Pulse Ox 02/21/19 15:15 69 15 144/88 H 95 02/21/19 15:05 87 18 137/90 96 02/21/19 14:55 86 18 153/98 H 97 02/21/19 14:45 97.5 F L 97 H 16 170/115 H 96 02/21/19 12:58 98.8 F 72 18 132/96 96 02/21/19 12:23 97.9 F 80 18 130/82 93 02/21/19 08:29 97.9 F 78 18 130/80 95 02/20/19 23:05 97.9 F 76 16 129/84 94 02/20/19 15:54 98.1 F 86 19 121/78 92 Pain Intensity Left Flank: Pain Intensity: 1 Transfer of Care Handoff Completed per policy Notes Mental Status: alert / awake / arousable and participated in evaluation Patient Amnestic to Procedure: Yes Nausea / Vomiting: adequately controlled Pain: adequately controlled Airway Patency, RR, SpO2: stable & adequate BP & HR: stable & adequate Hydration State: stable & adequate Anesthetic Complications: no major complications apparent and Pt Satisfied with anesthetic care
--- NOTE | 2019-02-21 19:36 | Discharge Summary ---
Date of Service February 21, 2019 Admission HPI Per Admitting Provider This is a 48 y/o male with a PMH of nephrolithiasis, asthma, dyslipidemia, reflux esophagitis and anxiety who presented to the ED today after the abrupt onset of left back/flank pain that awoke him from sleep around 7:30 am. 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 However, this morning he developed sharp pain in left mid-back that gradually moved to left flank area. He had associated nausea with one "prolonged" episode of non-bloody emesis. Due to the severity of symptoms as well as his prior history of stones, he came to the ED for evalu ation where he was found to have a 10 mm obstructing stone at the left UPJ. The patient follows with [facility] at present. He was last in the ED for stones in Aug 2018. He did undergo stent placement and subsequent lithotripsy for a right-sided stone in 2013 but does not recall any other procedures since that time. He received Dilaudid for pain the ED with improvement - rates current pain as a 2. He did note chills and sweats with the pain this morning but no documented fevers. He has a strong family history of nephrolithiasis as both his parents and his two sisters all have had issues with this. He admits to drinking large amounts of sweet tea and Coke but also attempts to keep up his water intake as he has been instructed by urology. When the pain started this morning, he did attempt to drink 2-3 glasses of water but vomited this back up immediately. s Left Ureteral Stent Placement Surgeon: Alysia Rock Side: Left p Left Ureteroscopy, Cystoscopy, Laser Lithotripsy, Basket Stone Extraction, Surgeon: Alysia Rock Side: Left Admission Exam Per Admitting Provider Constitutional: WD/WN, vitals as above + obese; no acute distress Eyes: PERRL, conjunctivae normal, anicteric sclerae EOM intact bilaterally ENMT: external ear and nose normal, oropharynx normal Neck: trachea midline Respiratory: normal respiratory effort, lungs clear to auscultation Auscultation: no rales, no rhonchi and no wheezes Cardiovascular: Rate/Rhythm: regular rate and regular rhythm Heart Sounds: no gallop, no murmur and no cardiac rub Vessels: dorsalis pedis pulses present Extremities: normal capillary refill; no pedal edema Gastrointestinal (Abdomen): Inspection/Auscultation: normal bowel sounds; abdomen not distended Percussion/Palpation: abdomen soft; abdomen nontender Musculoskeletal: Head/Neck/Chest: normocephalic, head atraumatic and neck supple Extremities: no cyanosis and no clubbing Skin: no rashes, warm and dry no jaundice Neurologic: moves all extremities; no focal motor deficits Speech / Cognition: normal speech Psychiatric: A+Ox3, euthymic affect Principal Diagnosis Renal Stent Discharge Exam ROS-No Headache, No Visual Changes, No Nausea, No Vomiting, No Fever, No Chills, No Neck Pain or Stiffness, No Chest Pain, No Palpitations, No SOB, No SUMNER, No Cough, No Sputum, No Wheezing, No Abdominal Pain, No Diarrhea, No Hematemesis, No Hemoptysis, No Unexpected Weight Loss, No Flank pain, No Melena, No Hematochezia, No Frequency, No Urgency, No Burning, No Hematuria, No Rashes, No Diaphoresis. Appetite is Normal Physical Exam Gen-AAO x 3, NAD, Afebrile Head-NCAT, EOMI, PERRLA, Anicteric Sclera, No Posterior Pharyngeal Erythema Neck-Supple, No JVD, No Thyromegaly, No Masses, No LAD, No Bruits Lungs-Clear to Auscultation Bilaterally, No Rales, No Rhonchi, No Wheezing, No Crepitus Chest-No S4, +S1, +S2, No S3, No Murmurs, No Rubs, No Gallops, No Ectopy Abdomen-Soft, Bowel Sounds Present, Non Tender, Non Distended, No Hepatomegaly, No Splenomegaly, No Palpable Masses, No Rebound, No Rigidity, No Guarding Musculoskeletal-Full Range of Motion Bilaterally, No CVAT Extremities-No Cyanosis, No Clubbing, No Edema Nuero-Cranial Nerves II-XII grossly intact, Motor WNL, DTRs WNL, Strength WNL, Non Focal Psych-Normal Mood Discharge Data Allergies Allergy/AdvReac Type Severity Reaction Status Date / Time barium sulfate Allergy Intermediate eye Verified 02/21/19 12:57 swelling morphine AdvReac Intermediate "MAKES ME Verified 02/21/19 12:57 REALLY SICK" Consultations 02/20/19 14:37 ED Decision to Admit Stat 02/20/19 14:41 Consult Urology Routine Procedures Performed Operation Date: 02/21/19 07:00 Actual Procedures s Left Ureteral Stent Placement(Left) - Alysia Rock MD p Left Ureteroscopy, Cystoscopy, Laser Lithotripsy, Basket Stone Extraction,(Left) - Alysia Rock MD Current Diagnoses Hyperlipidemia, unspecified (02/20/19) Anxiety disorder, unspecified (02/20/19) Unspecified asthma, uncomplicated (02/20/19) Gastro-esophageal reflux disease with esophagitis (02/20/19) Calculus of kidney (02/20/19) Encounter for other preprocedural examination (02/20/19) Allergies barium sulfate Allergy (Intermediate, Verified 02/21/19 12:57) eye swelling morphine Adverse Reaction (Intermediate, Verified 02/21/19 12:57) "MAKES ME REALLY SICK" Height/Weight/Isolation Height 5 ft 10 in Weight 129 kg Chemistry 02/20/19 02/21/19 12:04 06:28 Sodium 137 140 Potassium 4.3 4.1 Chloride 105 109 H Carbon Dioxide 28 29 Anion Gap 4.0 2.0 L BUN 14 12 Creatinine 1.08 0.95 Glucose 106 H 96 Urinalysis 02/20/19 12:15 Urine Color Skippers Urine Appearance Clear Urine pH 5.5 Ur Specific [place] 1.026 Urine Protein 1+ H Urine Glucose (UA) Negative Urine Ketones Trace H Urine Blood 3+ H Urine Nitrite Negative Urine Bilirubin Negative Ordered Studies 02/20/19 11:33 CT abd pelvis wo con Stat 02/21/19 13:00 FL retrograde includes kub Routine Hospital Course (1) Kidney stone: 10 mm obstructing left UPJ stone with mild to moderate left hydronephrosis on CT - Urology on case-plan to OR for cysto left ureteroscopy laser litho basket ston e extraction stent - IV pain control with Dilaudid and Toradol - IVF with NSS at 125 ml/hr - IV Zofran ordered for nausea - Monitor Daily Labs - SCDs for DVT prophylaxis - encourage ambulation S/P Left Ureteral Stent Placement Surgeon: Alysia Rock Side: Left p Left Ureteroscopy, Cystoscopy, Laser Lithotripsy, Basket Stone Extraction, Surgeon: Alysia Rock Side: Left (2) Dyslipidemia: - Continue simvastatin (3) Anxiety: - Continue sertraline - pt reports symptoms are well-controlled (4) Reflux esophagitis: - Will change to Pepcid (from pantoprazole) while patient admitted (5) Asthma: - Continue Breo (pt can bring from home if needed) and prn albuterol Total Time Total Time Spent Total Time Spent (In Minutes): 40 min Total Time Includes: Examination of the Patient, Discharge Planning, Medication Reconciliation and Communication With Other Providers Discharge Plan Discharge Items Patient Disposition: Home - Self-Care Reason For Visit: OBSTRUCTING NEPHROLITHIASIS Discharge Diagnosis: Renal Stone Condition: Good Discharge Goals: Improve disease control and Improve function Activity: Resume your previous activity Lifting: None and Gradually increase as tolerated Bathing: No limitations Sexual Activity: When tolerated Exercise/Sports: Gradually increase as tolerated Driving/Machine Use: No limitations Weightbearing: Left weightbearing and Right weightbearing Non-emergency contact: Primary Care Provider and Urologist Call non-emergency contact if: you have any medication questions and your pain is worsening Follow-up/Referrals: Hans Trevino DO [Primary Care Provider] - Alysia Rock MD [Physician] - (5-7 days) Diet: Regular Addtl Provider Instructions: None Prescriptions: New tamsulosin 0.4 mg Capsule 0.4 mg PO QAM Qty: 30 RF: 0 acetaminophen [Tylenol Extra Strength] 500 mg tablet 500 mg PO Q6H PRN (Reason: pain (scale score 1-3)) Qty: 60 RF: 0 ibuprofen 600 mg tablet 600 mg PO Q6H PRN (Reason: fever or pain) Qty: 60 RF: 0 Continued pantoprazole 20 mg tablet,delayed release (DR/EC) 20 mg PO DAILY RF: 0 albuterol sulfate 90 mcg/actuation HFA aerosol inhaler 2 puff inhalation UD PRN (Reason: Shortness Of Breath) RF: 0 sertraline 50 mg tablet 50 mg PO DAILY RF: 0 cholecalciferol (vitamin D3) [Vitamin D3] 1,000 unit Capsule 1,000 unit PO DAILY RF: 0 Probiotic 3 billion cell Capsule 3,000 mmu cells PO DAILY RF: 0 simvastatin 40 mg tablet 40 mg PO DAILY RF: 0 No Action Breo Ellipta 100-25 mcg/dose blister with device 1 puff inhalation BID RF: 0 Stand-Alone Forms: [facility] Discharge Orders: Discharge Order (Routine); Ordered 02/21/19 Ordered By: Bishop Bradley Admission Data Admit Date/Time: 02/20/19 14:41 Attending Provider: Bishop Bradley Admit Provider: Kimberley Beltre Primary Care Provider: Hans Trevino Other Providers: Kimberley Beltre ; Alysia Rock Service: Surgical Services
[2019-02-27 09:20] LABS: Component 2 DNR
== END 2019-02-21 20:43 | disposition home or self-care (01) | DRG 660 ==
LOC: ED 11:21 → SUATTDRO 14:41 → 3N 14:41